=== PATIENT | male | born 1940 | race Caucasian/White ===

== ENCOUNTER 2018-07-10 11:15 | Inpatient (IN) | payer MEDICARE ==
[~2018-07-10] VITALS: Ht 162.6 cm; Wt 45.4 kg
[~2018-07-10 11:15] MED LIST: ADVIL PM CAPLE1 EACH PO; ALENDRONATE SOD70 MG PO; ASPIRIN81 MG PO; DAILY VITAMIN1 EAC3 PO; GABAPENTIN300 MG PO; GABAPENTIN600 MG PO; KEFLEX500 MG PO; LEVAQUIN500 MG PO; LIPITOR20 MG PO; LISINOPRIL10 MG PO; MOBIC15 MG PO; MULTI-VITAMIN1 EAC1 PO; TEMAZEPAM15 MG PO; TYLENOL325 MG PO; VITAMIN D1000 UNI1 PO; VITAMIN D3 1,01 EACH PO
--- OUTSIDE RECORDS SUMMARY | 2018-07-10 11:20 | XMS REPORT | Clinical Summary ---
Author Author [facility] Organization [facility] Address Unknown Phone Unavailable Care Team Providers Care Caramel Candy Maker Name Role Phone oMntez Elizabeth MD PCP Allergies No Known Allergies Medications End Date Status Medication Sig Dispensed Refills Start Date Active lisinopril Take 20 mg by 0 (PRINIVIL,ZESTRIL) 20 mg mouth daily. 7 tablet Active meloxicam (MOBIC) 15 mg Take 15 mg by 0 tablet mouth daily. 7 Active alendronate (FOSAMAX) 70 Take 70 mg by 0 03/11/201 MG tablet mouth every 7 7 days. Mondays Active atorvastatin (LIPITOR) 10 Take 10 mg by 0 12/29/201 MG tablet mouth 6 nightly. Active aspirin (ECOTRIN) 81 MG Take 81 mg by 0 enteric coated tablet mouth daily. Active traZODone (DESYREL) 150 Take 150 mg 0 02/24/201 MG tablet by mouth 7 nightly. Active lactulose 10 gram/15 mL Take 10 g by 0 (15 mL) solution mouth daily as needed (constipation ). Active traMADol (ULTRAM) 50 mg Take 50 mg by 0 tablet mouth every 6 (six) hours as needed for moderate pain. Active metoclopramide (REGLAN) Take 10 mg by 0 10 MG tablet mouth 4 (four) times a day before meals and nightly. Active sucralfate (CARAFATE) 100 Take 1 g by 0 mg/mL suspension mouth 2 (two) times a day before meals. Active cholecalciferol, vitamin Take 1,000 0 D3, (VITAMIN D3) 1,000 Units by unit tablet mouth daily. Active Problems Problem Noted Date Aspiration pneumonia 04/17/2017 Sialorrhea 04/17/2017 CLL (chronic lymphocytic leukemia) 04/17/2017 Dysphagia 04/17/2017 Pulmonary asbestosis 04/17/2017 Dysphagia 04/08/2017 Pharyngeal dysphagia 04/06/2017 Dysarthria 04/06/2017 Motor neuron disease Muscle weakness Polyneuropathy, idiopathic progressive Primary lateral sclerosis Cranial nerve lesion Cervical spondylosis with myelopathy Encounters Care Team Description Date Type Specialty Heidi Boyce MA 07/22/2017 Telephone Otolaryngology after 07/09/2017 Family History Medical History Relation Name Comments Parkinsonism Brother Heart disease Father Stroke Mother Dementia Sister Relation Name Status Comments Brother Father Mother Sister Social History Date Tobacco Use Types Packs/Day Years Used Former Smoker Alcohol Use Drinks/Week oz/Week Comments No Sex Assigned at Date Recorded Not on file Industry Job Start Date Occupation Not on file Not on file Not on file Travel End Travel History Travel Start No recent travel history available. Last Filed Vital Signs Not on file Plan of Treatment Health Maintenance Due Date Last Done Comments SHINGRIX VACCINE (1 of 2) 01/11/1990 ZOSTER VACCINE 2000 PNEUMOCOCCAL 01/11/2005 POLYSACCHARIDE VACCINE AGE 65 AND OVER PNEUMOCOCCAL-13 01/11/2005 INFLUENZA VACCINE 03/23/2018 Results Not on fileafter 07/09/2017 Insurance Payer Benefit Subscriber ID Type Phone Address Plan / Group [employer] MEDICARE [employer] xxxxxxxxx HMO [employer] Advance Directives Patient has advance care planning documents on file. For more information, macario rust contact: Aaron Beavers [address] [place] [address]
--- OUTSIDE RECORDS SUMMARY | 2018-07-10 11:20 | XMS REPORT ---
Author Author [facility] Address Unknown Phone Unavailable Care Team Providers Care Medical Support Assistant Name Role Phone Araseli LOGAN Unavailable Unavailable Problems This patient has no known problems. Allergies, Adverse Reactions, Alerts This patient has no known allergies or adverse reactions. Medications This patient has no known medications. Results Test Description Test Time Test Comments Text Results Atomic Results Result Comments CHEST SINGLE (PORTABLE) [place] [address] Patient Name: RIVER MONZON MR #: [id number] : 1940 Age/Sex: 77/M Req #: [id number] Adm Physician: Ordered by: LUIS MANUEL LOGAN MD Report #: [id number] Location: ER Room/Bed: Procedure: [id number] DX/CHEST SINGLE (PORTABLE) Exam Date: 07/27/17 Exam Time: 2350 REPORT STATUS: Signed EXAM: CHEST SINGLE (PORTABLE), AP 1 view DATE: 07/27/2017 11:01 PM Time stamp on exam: 2343 hours INDICATION: Spitting up COMPARISON: AP view of the chest January 03, 2017 FINDINGS: LINES/TUBES: None LUNGS: No consolidations or edema. PLEURA: No effusions or pneumothorax. Bilateral calcified pleural plaques. HEART AND MEDIASTINUM: Normal size and contour. BONES AND SOFT TISSUES: No acute findings. Surgical hardware lower cervical spine. IMPRESSION: No acute thoracic abnormality. Signed by: Dr. Lefty Rahman M.D. on 07/28/2017 12:27 AM Dictated By: LEFTY RAHMAN MD Transcribed By: JAMISON on 07/28/1726 COPY TO: LUIS MANUEL LOGAN MD
[2018-07-10] MEDS ORDERED: ASPIRIN 81 MG CHEW TAB PO ONE (12:15)
[2018-07-10 13:05] LABS: BASOPHILS # (AUTO) 0.1 (0.0-0.1); BASOPHILS % 0.2 % (0.0-1.0); HEMATOCRIT 34.2 % (38.2-49.6); HEMOGLOBIN 10.8 g/dL (14.0-18.0); LYMPHOCYTES # (AUTO) 7.3 (1.0-3.2); LYMPHOCYTES % 27.6 % (18.0-39.1); MEAN CORPUSCULAR HEMOGLOBIN 28.7 pg (28-32); MEAN CORPUSCULAR HGB CONC 31.6 g/dL (31-35); MONOCYTES % 7.4 % (4.4-11.3); NEUTROPHILS # (AUTO) 16.9 (2.1-6.9); NEUTROPHILS % 64.2 % (38.7-80.0); PLATELET COUNT 334 x10e3/uL (140-360); RED BLOOD COUNT 3.76 x10e6/uL (4.3-5.7); RED CELL DISTRIBUTION WIDTH 14.7 % (11.7-14.4)
[2018-07-10 13:15] LABS: INR 0.98; PARTIAL THROMBOPLASTIN TIME 19.8 seconds (23.8-35.5); PROTHROMBIN TIME 13.9 seconds (11.9-14.5)
--- NOTE | 2018-07-10 13:19 | NUR ---
18#g to the right ej placed and ivf started. radiology in room. placed on the monitor and siderails up x2. pt w/hx of wade.
--- NOTE | 2018-07-10 13:22 | NUR ---
pt more awake/alert and talking with the techTina mahoney.
[2018-07-10 13:26] LABS: ALANINE AMINOTRANSFERASE 21 IU/L (0-55); ALBUMIN 3.3 g/dL (3.5-5.0); ALBUMIN/GLOBULIN RATIO 0.8 (0.8-2.0); ALKALINE PHOSPHATASE 115 IU/L (40-150); AMYLASE 131 U/L (25-125); ANION GAP 19.1 mmol/L (8-16); BLOOD UREA NITROGEN 30 mg/dL (7-26); BUN/CREATININE RATIO 27 (6-25); CALCIUM 8.3 mg/dL (8.4-10.2); CARBON DIOXIDE 22 mmol/L (22-29); CHLORIDE 102 mmol/L (98-107); CREATINE KINASE 246 IU/L (30-200); CREATININE, SERUM 1.13 mg/dL (0.72-1.25); EST GLOMERULAR FILTRATION RATE > 60 ML/MIN (60-); GLUCOSE 151 mg/dL (74-118); LIPASE 28 U/L (8-78); MAGNESIUM 2.3 MG/DL (1.3-2.1); SODIUM 138 mmol/L (136-145)
--- NOTE | 2018-07-10 13:26 | NUR ---
family in room and has been updated on poc.
[2018-07-10 13:27] LABS: POTASSIUM 5.1 mmol/L (3.5-5.1)
--- NOTE | 2018-07-10 13:27 | Diagnostic Imaging Report ---
EXAMINATION: CHEST SINGLE (PORTABLE) COMPARISON: Chest x-ray 07/27/2017 INDICATION: Fall, pain DISCUSSION: Frontal view of the chest obtained at 1254 hours. HEART AND MEDIASTINUM: The cardiomediastinal silhouette is normal in size and morphology LINES: None. There may be a vascular stent in the left upper quadrant. LUNGS: Diffuse hyperinflation is stable. No pneumonia or pulmonary edema. PLEURA: Calcified pleural plaques are stable. No pleural effusions or pneumothorax BONES AND SOFT TISSUES: Fusion hardware in the lower cervical spine is stable. There are anchors and the right humeral head. No acute fracture or dislocation. The soft tissues are normal. IMPRESSION: No acute traumatic pathology by x-ray. 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 Signed by: Dr. Kanu Pendleton MD on 07/10/2018 1:24 PM
[2018-07-10] MEDS ORDERED: VANCOMYCIN 1GM/NS 250 ML 250 ML IV ONE (13:30)
--- NOTE | 2018-07-10 13:30 | Diagnostic Imaging Report ---
Pelvis CPT code: 38282 Indication: Fall, pain Technique: AP view of the pelvis obtained. Comparison: CT abdomen/pelvis 12/26/2016 Findings: There are fractures of the left superior and inferior pubic rami. No diastases of the sacroiliac joints. There is superior migration of the left pubic symphysis by 7 mm. No diastases of the pubic symphysis. The femurs are intact and normal in position. A bone island in the intertrochanteric region of the right femur is stable. Vascular clips in the right inguinal region are stable. Bilateral pedicle screws and vertical stabilizing bars in the lower lumbar spine are stable and appear intact. IMPRESSION: Fractures of the left superior and inferior pubic rami with superior migration of the left pubic symphysis by 7 mm. No femur fractures. Signed by: Dr. Kanu Pendleton MD on 07/10/2018 1:27 PM
[2018-07-10 13:31] LABS: B-TYPE NATRIURETIC PEPTIDE2 37.1 pg/mL (0-100)
[2018-07-10] MEDS ORDERED: SODIUM CHLORIDE 0.9% 1000ML 1,000 ML IV STA (14:07)
[2018-07-10] MEDS: METRONIDAZOLE 500MG/NS 100ML 100 ML IV SCH ×2 (14:30→23:35)
[2018-07-10] MEDS: CEFEPIME HCL 2 GM VIAL IV SCH (14:30)
--- NOTE | 2018-07-10 14:38 | Diagnostic Imaging Report ---
History:Fall Comparison studies:CT head 11/11/2015 Technique: Axial images were obtained from the skull base to the vertex. Coronal and sagittal images reconstructed from the axial data. Intravenous contrast: None Dose modulation, iterative reconstruction, and/or weight based adjustment of the mA/kV was utilized to reduce the radiation dose to as low as reasonably achievable. Findings: Scalp/skull: No abnormalities. Extra-axial spaces: No masses. No fluid collections. Brain sulci: Mildly prominent. Ventricles: Mild compensatory dilatation. No hydrocephalus. Parenchyma: Scattered hypodensities in the supratentorial white matter are small vessel ischemic changes. No masses, hemorrhage, acute or chronic cortical vascular insults. Sellar/suprasellar region: No abnormalities. Craniocervical junction: Patent foramen magnum. No Chiari one malformation. Incidental findings: Atherosclerotic calcifications in the carotid siphons . Partially visualized posterior upper cervical spine fusion. Impression: No acute abnormalities. Chronic findings: 1. Mild generalized volume loss. 2. Moderate supratentorial white matter small vessel ischemic changes. Signed by: DR Jax Landaverde M.D. on 07/10/2018 2:35 PM
--- NOTE | 2018-07-10 14:44 | Diagnostic Imaging Report ---
History: Fall Comparison studies: None Technique: Axial images were obtained through the cervical region. Coronal and sagittal images reconstructed from the axial data. Intravenous contrast: None Dose modulation, iterative reconstruction, and/or weight based adjustment of the mA/kV was utilized to reduce the radiation dose to as low as reasonably achievable. Findings: Atlantoaxial articulation: Intact Alignment: Reversal of the cervical spine lordosis Cervicomedullary junction: No abnormalities. Patent foramen magnum. Soft tissues: No gross abnormalities. Vertebrae: No fractures, neoplasm or infection. Anterior cervical fusion with plate and screws at C3 and T1. Corpectomy changes with bone graft from 4 through T1. Posterior fusion from C2 through T2. Degenerative changes: Grossly patent canal and foramina. IMPRESSION: 1. No acute cervical abnormalities. 2. Surgical changes of the cervical spine as described above. Signed by: DR aJx Landaverde M.D. on 07/10/2018 2:40 PM
--- NOTE | 2018-07-10 14:48 | Diagnostic Imaging Report ---
CT chest, abdomen and pelvis with intravenous contrast Indication: Trauma, fall, left hip pain Technique: Thin collimation axial images obtained from the thoracic inlet to the level of the pubic symphysis following the uneventful administration of 100 cc of low osmolar, nonionic intravenous contrast. RADIATION DOSE: Total DLP: 543.2 mGy*cm Estimated effective dose: (DLP x 0.015 x size factor) mSv CTDIvol has been reviewed. It is below the limits set by the Radiation Protocol Committee (RPC). Comparison: Pelvis x-ray performed at [address] abdomen/pelvis 12/26/2016 CHEST FINDINGS: Lymph nodes: Prominent left axillary lymph node measures 11 mm. No enlarged right axillary lymph nodes. Anterior paratracheal lymph node measures 8 mm. Precarinal lymph node measures 7 x 13 mm. No enlarged subcarinal lymph nodes. No enlarged hilar lymph nodes. Thyroid: There is beam Britt artifact from fusion hardware in the lower cervical spine. Visualized portions are unremarkable.. Mediastinum: The heart is enlarged. No pericardial effusion or mediastinal air. There is a small hiatal hernia. The ascending aorta measures 3.5 cm in diameter. The main pulmonary artery measures 2.5 cm in diameter. There are heavy calcifications of the coronary arteries. Airways: Small amount of mucous in the proximal trachea. Lungs: Right Lung: Diffusely hyperinflated. Rounded atelectasis of the anterolateral upper lobe associated with pleural plaques. There is subpleural microatelectasis adjacent to pleural plaques in the posterior mid lung field. There is scarring in the base of the lung. No contusions. Left Lung: Diffusely hyperinflated. There is subpleural microatelectasis adjacent to several pleural plaques. No contusions. Pleura:Calcified pleural plaques. No pleural effusions or pneumothorax. ABDOMEN FINDINGS: Liver: No contusion or laceration. Subcentimeter low attenuating lesion in the right lobe is too small to characterize. Gallbladder: Present and contains a curvilinear calcification of the wall. No gallbladder wall thickening or pericholecystic fluid. No biliary ductal dilatation. Pancreas: Normal attenuation without mass or ductal dilatation. Spleen: Normal in size without mass. Adrenal Glands: No evidence for mass. Kidneys: Right: Normal enhancement. No contusion or laceration. Tiny cortical low attenuating lesions are too small to characterize but are statistically cysts. No calculi. No hydronephrosis. Left: Normal enhancement. Wedge-shaped areas of hypoattenuation upper and lower poles are suggestive of scarring. No contusion or laceration. A well-defined cyst in the lower pole measures 10 mm. There are parenchymal calcifications in the upper pole measuring up to 10 mm. No hydronephrosis. Lymph Nodes: No enlarged abdominal or retroperitoneal lymph nodes. Aorta: Mildly ectatic with diffuse calcifications. PELVIS FINDINGS: Bowel: Stomach: Percutaneous gastrostomy is in appropriate position.. Small Bowel: Normal in caliber with normal wall thickness. Large Bowel: Large stool ball in the colon with large amount of stool throughout the large bowel. No mural thickening or pericolonic inflammation. Appendix: Not visualized and may be absent or collapsed. Bladder: Intact. Prostate gland is enlarged. Seminal vesicles are normal in morphology. Peritoneum/retroperitoneum: No free fluid or fluid collection.. Bones: Displaced of the left pubic superior and inferior pubic rami. No diastases of the sacroiliac joints or pubic symphysis. The superior migration of the left pubic symphysis on x-ray corresponds to the pubic ramus fracture. The hips are intact and normally positioned. There is fusion hardware in the lower lumbar spine at L4 and L5. No associated fracture or lucency to suggest loosening. There is 8 mm of anterolisthesis of L4 on L5. No compression fractures. Moderate degenerative changes from L1 to L3. Mild height loss of the T8 vertebral body without wedging. The spinal canal is intact. Fusion hardware in the lower cervical spine/upper thoracic spine appears intact without associated fracture. No evidence of rib or sternal fracture. The shoulders are intact and normally positioned. There are surgical anchors in the right humeral head. IMPRESSION: 1. No evidence of solid or hollow organ injury. 2. Fractures of the left superior and inferior pubic rami without malalignment of the bony pelvis. 3. Asbestos related pleural disease. Round atelectasis in the right upper lobe. 4. Medical devices as described above. 5. Atherosclerosis and aortic ectasia. 6. Cholelithiasis. 7. Parenchymal scarring of the left kidney. Bilateral renal cortical lesions suggestive of cysts. 8. Nonspecific mildly prominent left axillary and mediastinal lymph nodes. Recommend. Surveillance with CT to confirm stability. 9. Small hiatal hernia. Large stool burden with fecal impaction. No bowel obstruction. Signed by: Dr. Kanu Pendleton MD on 07/10/2018 2:44 PM
[2018-07-10] MEDS ORDERED: IOPAMIDOL 370 MG/ML 200 ML INFUS..BTL INJ ONE (15:06)
[2018-07-10 15:11] LABS: BILIRUBIN,URINE NEGATIVE (NEGATIVE); KETONES,URINE NEGATIVE (NEGATIVE); LEUKOCYTE ESTERASE ,URINE NEGATIVE (NEGATIVE); NITRITE,URINE NEGATIVE (NEGATIVE); PROTEIN,URINE DIPSTICK TRACE (NEGATIVE); URINE UROBILINOGEN 0.2 mg/dL (0.2 - 1)
[2018-07-10 15:20] LABS: BACTERIA,URINE RARE /HPF; CLARITY,URINE CLEAR (CLEAR); COLOR,URINE YELLOW (YELLOW); EPITHELIAL CELLS,URINE RARE /LPF; RBC,URINE 0-5 /HPF (0-5); WBC,URINE (MAN) 0-5 /HPF (0-5)
[2018-07-10] MEDS: MORPHINE SULFATE 2 MG/ML SYR IV NR ×2 (15:39→16:10)
[2018-07-10] MEDS ORDERED: PANTOPRAZOLE 40 MG 10ML VIAL IV STA (16:40)
[2018-07-10] MEDS: SODIUM CHLORIDE 0.9% 1000ML 1,000 ML IV SCH (16:40)
[2018-07-10] MEDS ORDERED: ACETAMINOPHEN 325 MG TAB PO PRN (16:45)
[2018-07-10] MEDS ORDERED: ALENDRONATE SODIUM 70 MG TAB PO SCH (16:45)
[2018-07-10] MEDS ORDERED: ONDANSETRON HCL INJ 2 MG/ML VIAL IV PRN (16:45)
[2018-07-10 16:58] LABS: BAND NEUTROPHILS % (MANUAL) 2 %; LYMPHOCYTES % (MANUAL) 20 % (19-48); MONOCYTES % (MANUAL) 4 % (3.4-9.0); NEUTROPHILS % (MANUAL) 74 % (40-74); PLATELET ESTIMATE ADEQUATE; PLATELET MORPHOLOGY COMMENT FEW EDTA CLUMPING; RBC MORPHOLOGY COMMENT NORMAL
--- OUTSIDE RECORDS SUMMARY | 2018-07-10 17:08 | XMS REPORT | Clinical Summary ---
Author Author [facility] Organization [facility] Address Unknown Phone Unavailable Care Team Providers Care Clinical Faculty Name Role Phone Montez Elizabeth MD PCP Allergies No Known Allergies [...] more information, macario rust contact: Aaron Beavers [address] [place] [address]
--- NOTE | 2018-07-10 18:16 | NUR ---
RECEIVED PATIENT FROM ER AWAKE AND ALERT, NO S/S OF DISTRESS, COUGH WITH PRODUCTIVE SPUTUM NOTED, PATIENT CONNECTED TO CARDIAC MONITORING, AND SUCTION SET UP AT THIS TIME, R EJ PIV INTACT AND NS @ 100 MLS/HR INFUSING, PEG TUBE NOTED AND CLAMPED, FAMILY AT BEDSIDE, UPDATED ON POC AND VERBALIZED UNDERSTANDING, BED LOW AND LOCKED AND CALL RTEJO IN REACH WILL CONTINUE TO MONITOR
[2018-07-10 18:30] VITALS: BP 121/66
[2018-07-10] MEDS: PANTOPRAZOLE 40 MG 10ML VIAL IV SCH (18:33)
[2018-07-10] MEDS: MORPHINE SULFATE 2 MG/ML SYR IV PRN (18:46)
[2018-07-10 19:20] VITALS: BP 102/51
[2018-07-10 19:45] VITALS: BP 102/51
--- NOTE | 2018-07-10 20:06 | History and Physical ---
HISTORY OF PRESENT ILLNESS: He is essentially a 78-year-old male with past medical history positive for ALS, history of arthritis, and history of chronic lymphocytic leukemia. He was found to be on the floor at home. He was found to have pelvis fractures. He was very hypotensive when he came here and responded to IV fluids. Lactic acids were elevated more likely secondary to sepsis. Patient is admitted to the hospital. REVIEW OF SYSTEMS CARDIOVASCULAR: No chest pain or palpitation. RESPIRATORY: No shortness of breath. No cough. GASTROINTESTINAL: No nausea, no vomiting, no diarrhea. GENITOURINARY: No frequency, no dysuria. ALLERGIES: HE IS NOT ALLERGIC TO ANY MEDICATION. SOCIAL HISTORY: He does not smoke, does not drink. PAST MEDICAL HISTORY: Positive for CLL and ALS. PHYSICAL EXAMINATION VITAL SIGNS: Temperature 99.9, heart rate 85 per minute, respiratory rate 16 per minute, blood pressure 115/59, oxygen saturation 93%. LABORATORY DATA: On the CBC, white blood count 26.32, hemoglobin 10.8, hematocrit 34.2, platelet count 340,000. On the BMP, sodium 138, potassium 5.1, chloride 102, CO2 of 22, anion gap 19.1, BUN 30, creatinine 1.13, and glucose 151. Lactic acid 21.2, calcium 9.3, magnesium 2.3, total bilirubin 0.5, AST 32, ALT 21, alkaline phosphatase 115. Creatine kinase 246, CK-MB 1.80, troponin 0.001, B-natriuretic peptide 57.1. Total protein is 7.2, albumin 3.3, globulin 3.9, amylase 131, lipase 28. Urinalysis did not show any significant abnormality. PT 13.9, INR 0.98, PTT 19.8. Blood culture and urine culture have been sent. Chest x-ray is negative. CT of the cervical spine completely normal, showed no evidence of any fractures. CT of the head showed no evidence of any CVA. Chest x-ray showed . CT of the abdomen showed essentially fecal impaction and some tiny cortical low-attenuating lesions, too small to characterize, no hydronephrosis. Fractures of left superior and inferior pubic rami without malalignment of the bony pelvis, asbestosis related pulmonary disease, round atelectasis right upper lobe atherosclerotic aortic ectasia, cholelithiasis, parenchymal scarring on the left kidney, bilateral renal cortical lesions suggestive of cysts, nonspecific mildly prominent left axillary and mediastinal lymph nodes, recommend surveillance with CT to confirm stability. On report of CT of the abdomen, also small hiatal hernia with fecal impaction and bowel loop dilatation. FINAL IMPRESSION 1. Septic shock, which is resolving. 2. Ixqfa-wf-iivgiga renal failure. 3. Pelvis fracture. 4. Amyotrophic lateral sclerosis and chronic lymphocytic leukemia. We are going to consult Dr. Ordaz for hematology because of leukemia. We were going to consult Dr. Pham for orthopedic surgery because of pelvis fracture, and Dr. Hackett for infectious disease. The rest of medications will be continued with continuation of the Flagyl 500 mg IV q.6 hours, normal saline 125 mL an hour, vancomycin received 1 dose, Tylenol 650 mg q.4 hours as needed for pain or fever, aspirin 81 mg daily, atorvastatin 10 mg daily, cefepime 2 grams IV twice a day, cholecalciferol 1000 units 3 times a day. Continue morphine 2 mg IV q.4 hours as needed, Zofran 4 mg IV q.4 hours as needed, and Protonix 40 mg IV twice a day. Job#: [id number] PAT
[2018-07-10 21:00] VITALS: BP 102/51
[2018-07-10] MEDS ORDERED: ATORVASTATIN 20 MG TAB PO SCH (21:00)
[2018-07-10] MEDS: CHOLECALCIFEROL 1,000 UNIT TAB PO SCH (21:00)
[2018-07-10 22:04] LABS: CREATINE KINASE MB 5.3 ng/mL (0-5.0)
[2018-07-11] VITALS (10 sets, daily range): BP systolic 96–119; BP diastolic 48–65
[2018-07-11] MEDS: MORPHINE SULFATE 2 MG/ML SYR IV PRN (00:47)
[2018-07-11] MEDS ORDERED: MORPHINE SULFATE 2 MG/ML SYR IV ONE (02:15)
[2018-07-11] MEDS: CEFEPIME HCL 2 GM VIAL IV SCH ×2 (02:20→15:37)
[2018-07-11] MEDS: CYCLOBENZAPRINE HCL 10 MG TAB PO PRN ×3 (04:10→20:15)
[2018-07-11] MEDS: SODIUM CHLORIDE 0.9% 1000ML 1,000 ML IV SCH ×3 (04:10→22:40)
[2018-07-11 04:36] LABS: BASOPHILS # (AUTO) 0.1 (0.0-0.1); BASOPHILS % 0.3 % (0.0-1.0); EOSINOPHILS # (AUTO) 0.1 (0.0-0.4); EOSINOPHILS % 0.2 % (0.0-6.0); HEMATOCRIT 28.5 % (38.2-49.6); LYMPHOCYTES # (AUTO) 13.1 (1.0-3.2); LYMPHOCYTES % 53.6 % (18.0-39.1); MEAN CORPUSCULAR HEMOGLOBIN 28.6 pg (28-32); MEAN CORPUSCULAR HGB CONC 31.6 g/dL (31-35); MEAN CORPUSCULAR VOLUME 90.5 fL (81-99); MONOCYTES # (AUTO) 1.6 (0.2-0.8); MONOCYTES % 6.6 % (4.4-11.3); NEUTROPHILS # (AUTO) 9.5 (2.1-6.9); NEUTROPHILS % 38.9 % (38.7-80.0); PLATELET COUNT 300 x10e3/uL (140-360); RED BLOOD COUNT 3.15 x10e6/uL (4.3-5.7); RED CELL DISTRIBUTION WIDTH 14.7 % (11.7-14.4)
[2018-07-11 04:58] LABS: ALANINE AMINOTRANSFERASE 19 IU/L (0-55); ALBUMIN 2.6 g/dL (3.5-5.0); ALBUMIN/GLOBULIN RATIO 0.7 (0.8-2.0); ALKALINE PHOSPHATASE 90 IU/L (40-150); BLOOD UREA NITROGEN 28 mg/dL (7-26); BUN/CREATININE RATIO 33 (6-25); CALCIUM 8.5 mg/dL (8.4-10.2); CARBON DIOXIDE 19 mmol/L (22-29); CHLORIDE 109 mmol/L (98-107); CREATININE, SERUM 0.86 mg/dL (0.72-1.25); EST GLOMERULAR FILTRATION RATE > 60 ML/MIN (60-); GLUCOSE 96 mg/dL (74-118); SODIUM 140 mmol/L (136-145)
[2018-07-11 06:27] LABS: CREATINE KINASE MB 4.5 ng/mL (0-5.0)
[2018-07-11] MEDS: METRONIDAZOLE 500MG/NS 100ML 100 ML IV SCH ×4 (06:30→23:37)
[2018-07-11 07:05] LABS: LYMPHOCYTES % (MANUAL) 63 % (19-48); MONOCYTES % (MANUAL) 4 % (3.4-9.0); NEUTROPHILS % (MANUAL) 33 % (40-74); PLATELET ESTIMATE ADEQUATE; PLATELET MORPHOLOGY COMMENT FEW LARGE; RBC MORPHOLOGY COMMENT NORMAL
[2018-07-11 07:06] LABS: ANISOCYTOSIS SLIGHT; HYPOCHROMASIA SLIGHT
--- NOTE | 2018-07-11 07:20 | NUR ---
Message left for answering service for Dr. Chris re: order to be attending physician from Dr. Nguyen.
[2018-07-11] MEDS: CHOLECALCIFEROL 1,000 UNIT TAB PO SCH ×3 (09:00→20:15)
[2018-07-11] MEDS: ASPIRIN 81 MG CHEW TAB PO SCH (11:00)
[2018-07-11] MEDS: PANTOPRAZOLE 40 MG 10ML VIAL IV SCH ×2 (11:00→17:55)
--- NOTE | 2018-07-11 11:03 | Progress Note ---
DATE: July 11, 2018 Mr. Gloria is a 78-year-old man with a history of ALS, history of arthritis, chronic lymphocytic leukemia. He was found at home on the floor. He has a pelvic fracture. He was hypotensive so he was sent to the emergency room. PHYSICAL EXAMINATION GENERAL: Today, the patient is awake and alert. He answers questions. VITALS: Temperature is 98.7, blood pressure is 96/48. HEART: Regular rate. LUNGS: Poor inspiratory effort. ABDOMEN: Distended and soft. BLOOD WORK: White count is 24.44, hemoglobin is 9, hematocrit is 28.5. CPK 811. Troponin negative. Lactic acid is elevated. Urine shows 0-5 white blood cells. Urine culture and blood cultures are pending. Cervical CT shows no acute findings. Brain CT shows no acute abnormalities. Pelvic x-ray shows fracture of a left superior and inferior pubic rami and superior migration of the left pubic symphysis. Chest x-ray no acute traumatic pathology. Chest CT shows no solid organ injury. Fracture of the left superior and inferior pubic rami. Asbestosis related pleural disease. Small hiatal hernia. Abdominal and pelvic CT showed no solid or hollow organ injury. ASSESSMENT AND PLAN 1. Septic shock. 2. Pelvic fracture. 3. Xtfrw-im-[id number] renal failure. 4. Dehydration. 5. History of chronic lymphocytic leukemia. 6. History of amyotrophic lateral sclerosis. PLAN: At the present time, is to admit the patient to the hospital. Surgical consult with Dr. Pham. Orthopedic consult with Dr. Pham. Infectious disease consult with Dr. Hackett. Continue IV antibiotics. Continue to monitor mental status. We need to follow culture results. The overall prognosis of the patient is still guarded. Job#: [id number] MA
[2018-07-11] MEDS: MORPHINE SULFATE INJ 4 MG/ML INJ IV PRN ×2 (12:19→20:15)
--- NOTE | 2018-07-11 12:43 | NUR ---
Nutrition Intervention Note RD Recommendation(s) for Physician: Rec to start bolus feedings of Jevity 1.2 via PEG with 7 TOTAL CANS/DAY q4hr (2 cans for 1st 3 feedings and 1 can for last feeding) - providing 1995kcal and 92.4g protein, 1337mL water Rec 50mL of free H2O flushes before and after each feeding, additional H2O per MD discretion Keep HOB elevated 30-45degrees during feeding and 60 minutes after feeding Monitor labs and TF tolerance daily; replace low lytes Obtain daily weight Plan of Care: RD following, monitoring for tolerance and adequacy, TF rec Nutrition reason for involvement: RN Consult no reason stated RD Assessment 07/11: Chart reviewed. 78yo M who is admitted s/p fall with pelvic fx. Family presents on bedside provided all hx. Per family, pt has had PEG tube with him for 1.5 years. Pt has been receiving bolus feedings of Jevity 1.2 via PEG with 7 TOTAL cans/day q4hr (2 cans for 1st 3 feedings and 1 can for last feeding). Pt has been tolerating TF at home very well with some reported weight gain. Last BW check at the MDs office was 110lbs a month ago. Family reports of no weight check upon admission due to weakness. Bedside scale showed ~110lbs [address] checked. 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 Family also reports of lactulose usage when needed. RD rec to resume home feeding as medically feasible. Will continue to monitor and follow. Principal Problems/Diagnoses: septic shock, pelvic fx, acute on chronic renal failure, dehydration PMH: leukemia, ALS arthritis GI: No nutrition since admission on 07/10, LBM 07/09 Skin: intact Labs: (07/11) BUN 28 h, AST 36 H Meds: (07/11) Flexeril, NaCl Ht: 64in Wt: 110lb per family BMI: 18.9kg/m2 IBW: 120lbs Malnutrition Evaluation (07/11/18) The patient does not meet criteria for a specified degree of malnutrition at this time. Will re-evaluate at follow-up as appropriate. Nutrition Prescription (Diet Order): NPO Estimated Nutritional Needs: Calories: 1635-1908kcal (30-35kcal/kg/d) Weight used : Actual BW Protein: 75-100g (1.5-2g/kg/d) Weight used: Actual BW Diet Adequacy:Not meeting calorie needs, Not meeting protein needs Diet Education Needs Assessment:Diet education not indicated. Nutrition Care Level: moderate Nutrition Diagnosis: Inadequate oral intake as related chronic medical illness as evidenced by requiring EN as main source of nutrients. Goal: Patient will meet 75-100% of estimated needs by follow up Progress: Not Progressing Interventions: Composition, Rate, Route, IVF Monitoring/Evaluation: Total energy intake, Total protein intake, Formula/Solution, IVF, Prescription medication, Weight change Signed: Nicole Enriquez MS, RD, LD
[2018-07-11 13:00] LABS: CREATINE KINASE MB 6.3 ng/mL (0-5.0)
--- NOTE | 2018-07-11 15:57 | NUR ---
CM SPOKE TO PATIENT AND PATIENT DAUGHTER LAMONTE AT BEDSIDE. PATIENT LIVES WITH SON THOM AWAD IN [place], [place]. PATIENT HAS A REGULAR BED, SUCTION DEVICE, AND WALKER AT HOME. FAMILY FRIEND, REGIS ESCALONA-TOMMY LICVES IN THE HOME AND ASSISTS WITH FEEDING AND CARING FOR PATIENT. PATIENT AND PATIENT FAMILY STTAES THEY HAVE NO NEEDS AT THIS TIME. CM GAVE FAMILY CM INFORMATION FOR ANY ASSISTANCE. LAMONTE- DAUGHTER: [phone] THOM- SON: [phone] GOAL IS FOR PATIENT TO RETURN HOME WITH NO NEEDS.
--- NOTE | 2018-07-11 17:14 | Diagnostic Imaging Report ---
EXAM: KNEE LEFT THREE VIEWS DATE: 07/11/2018 2:43 PM INDICATION: ^PELVIC FRACTURE ^[id number] ^1613 pain COMPARISON: None FINDINGS: Positioning limits evaluation. No definite fracture at the knee. No significant joint effusion. IMPRESSION: No acute findings. Signed by: Dr. Hemanth Soliz MD on 07/11/2018 5:11 PM
--- NOTE | 2018-07-11 17:15 | Diagnostic Imaging Report ---
EXAM: FEMUR 2 VIEWS MINIMUM LEFT DATE: 07/11/2018 2:43 PM INDICATION: ^PELVIC FRACTURE pain COMPARISON: None FINDINGS: Left inferior pubic ramus fracture partially visualized. Mild degenerative changes left hip. No fracture in the femur identified. Distal femur not included. See knee radiographs. IMPRESSION: Left inferior pubic ramus fracture. Signed by: Dr. Hemanth Soliz MD on 07/11/2018 5:12 PM
--- NOTE | 2018-07-11 17:26 | Consultation ---
DATE OF CONSULTATION: REASON FOR CONSULTATION: Concern about sepsis and pneumonia. HISTORY OF PRESENT ILLNESS: This patient is a 78-year-old white male with history of ALS, arthritis, chronic lymphocytic leukemia. The patient apparently was found at the house on the floor, was brought to the emergency room where he was diagnosed with pelvic fracture. He is not a surgical candidate. Also the patient has been hypotensive. He has been getting IV fluid. The patient, who is currently lying in bed comfortably, does not really provide any complaints. His daughter at the bedside. When he first came, his white count was 26.3, hemoglobin of 10.8, hematocrit of 34, platelet 340. BMP had the sodium 138, the potassium 5.1, the chloride 102, BUN 30, creatinine 1.13. Lactic acid 21. Calcium 9.3. Amylase 131, lipase 28. The UA did not show any abnormality. Chest x-ray negative. CT of the cervical spine normal. CT of the head, no evidence of any CVA. CT of the abdomen showed fecal impaction, some tiny cortical low lesions. Patient was admitted with pelvic fracture and sepsis. Infectious Disease was consulted. Blood cultures negative for 24 hours. White count on admission was 26, today 24. Hemoglobin 9.1, hematocrit 28, platelets 300. PHYSICAL EXAMINATION: GENERAL: Patient is alert, does not seem acute distress. VITAL SIGNS: T max 100.3. HEENT: He does not appear icteric. NECK: Supple. CHEST: Clear bilaterally. HEART: S1, S2. No S3, no S4. No murmur. ABDOMEN: Soft. Bowel sounds present. No tenderness. EXTREMITIES: No edema. SKIN: No rash. IMPRESSION: 1. Hypotensive, hypertension and fever. Concerned about sepsis. Will get blood cultures, which were ordered. Will put him on Rocephin. Discontinue Flagyl. 2. Amyotrophic lateral sclerosis. 3. Debility. I am not so sure if the patient can go back home. I think he would need LTAC for extensive PT/OT plus antibiotic plus supportive care since patient was septic on present. Will follow. Job#: [id number] EV
--- NOTE | 2018-07-11 19:05 | Consultation ---
DATE OF CONSULTATION: July 11, 2018 CONSULTATION TO: Dr. Nguyen HISTORY: Mr. Gloria is a 78-year-old male referred to me for evaluation of chronic lymphocytic leukemia, history of chronic lymphocytic leukemia, history of amyotrophic lateral sclerosis. The patient fell at home, could not get up, had subsequent pain in the hip. Subsequently was found to have fracture of the pubic ramus on the left, history of being hypotensive in the emergency room. SOCIAL HISTORY: Noncontributory. FAMILY HISTORY: Noncontributory. ALLERGIES: REPORTED NONE. MEDICATIONS: At this time: 1. Metronidazole. 2. Tylenol. 3. Normal saline. 4. Fosamax. 5. Aspirin. 6. Lipitor. 7. Cefepime. 8. Flexeril. 9. Morphine. 10. Protonix. REVIEW OF SYSTEMS: HEENT: Normal. CARDIAC: Normal. RESPIRATORY: At the present time reported as possible bronchopneumonia. GI: Normal. : Normal. MUSCULOSKELETAL: Fracture of the pubic ramus. NEUROENDOCRINE: Reported essentially normal. HEMATOLOGICAL: Stage 4 chronic lymphocytic leukemia by Maximiliano Mullen's classification. PHYSICAL EXAMINATION: GENERAL: A moderately-built male. HEENT: No palpable adenopathy. HEART: Within normal limits. LUNGS: Clear. ABDOMEN: Obese. RECTAL: Deferred. CENTRAL NERVOUS SYSTEM: Could not be done. EXTREMITIES: Essentially normal. LABS AND INVESTIGATIONS: Of interest show a hemoglobin of 10.8, hematocrit of 34.2, MCV 91, MCHC 31.6, RDW 14.7. White count of 26,320 with predominantly lymphocytes 63%. Chemistry shows a sodium of 138, potassium 5.1, chloride of 72, CO2 22, BUN 30, creatinine 1.1, glucose 151. Lactic acid high at 21.2. Calcium 8.3. Bilirubin 0.5, SGOT 32, SGPT 21, alkaline phosphatase 115. Total protein 7.2, albumin 3.3, globulin 3.9. IMAGING: Consists of CAT scan of the abdomen and pelvis. The patient has asbestosis related pleural disease, round atelectasis at the right lobe, atherosclerosis of the aorta, gallstones, hiatus hernia. The patient has hardware at L4-L5. There is some compression of T8, however, no wedging. Osteophytes from L1 to L3. IMPRESSION: 1. Chronic lymphocytic leukemia, stage 4 by Mullen's classification. 2. Fracture, left inferior superior pubic ramus. 3. History of amyotrophic lateral sclerosis. 4. Hyperkalemia. 5. Lactic acidosis. 6. Hypoalbuminemia. 7. Hyperglobulinemia. 8. Hypocalcemia. 9. Sepsis. 10. Urinary tract infection. 11. Asbestosis. 12. L4-L5 fusion. 13. Gallstones. 14. Hiatus hernia. PLAN, COMMENTS, AND SUGGESTIONS: 1. Suggest to continue aggressive antibiotic therapy. 2. Chronic lymphocytic leukemia at this time does not need any treatment. However, stage 4 is always treated with systemic chemotherapy with Fludara, however, I would leave it up to his medical oncologist to take over once the patient is out of this hospital. Thank you. Job#: [id number] cc:MD JORDY CATALAN MD
[2018-07-11] MEDS: ATORVASTATIN 10 MG TAB PO SCH (20:15)
--- NOTE | 2018-07-11 21:23 | NUR ---
POSITIONED PATIENT ON REVERSE [place], GAVE ONE CARTOON OF JEVITY, AND 50 CC FREE WATER BEFORE AND AFTER IT. PATIENT TOLERATED WELL, NO DISTRESS NOTED, WILL CONTINUE TO MONITOR.
[2018-07-12] MEDS ORDERED: SODIUM CHLORIDE 0.9% 50ML 50 ML ONE (01:21)
[2018-07-12] MEDS: CEFEPIME HCL 2 GM VIAL IV SCH ×2 (01:22→14:02)
[2018-07-12] MEDS: MORPHINE SULFATE INJ 4 MG/ML INJ IV PRN ×3 (01:25→20:20)
--- NOTE | 2018-07-12 01:31 | NUR ---
cleaned patient in bed, gave morphine PRN prior cleaning to reduce pain. patient tolerated fair. will continue to monitor.
[2018-07-12] MEDS: CYCLOBENZAPRINE HCL 10 MG TAB PO PRN ×2 (03:19→20:21)
[2018-07-12 04:07] VITALS: BP 116/64
[2018-07-12] MEDS: METRONIDAZOLE 500MG/NS 100ML 100 ML IV SCH ×4 (05:07→23:37)
[2018-07-12 07:40] VITALS: BP 112/58
[2018-07-12] MEDS: SODIUM CHLORIDE 0.9% 1000ML 1,000 ML IV SCH ×2 (08:40→19:10)
[2018-07-12] MEDS ORDERED: ALENDRONATE SODIUM 70 MG TAB PO SCH ×2 (09:00)
[2018-07-12] MEDS: PANTOPRAZOLE 40 MG 10ML VIAL IV SCH ×2 (09:37→19:10)
[2018-07-12] MEDS: CHOLECALCIFEROL 1,000 UNIT TAB PO SCH ×3 (09:37→20:20)
[2018-07-12] MEDS: ASPIRIN 81 MG CHEW TAB PO SCH (09:37)
--- NOTE | 2018-07-12 16:12 | NUR ---
CM SPOKE TO PATIENT AT BEDSIDE. PATIENT ALERT AND ORIENTED X3. PATIENT INFORMED OF MENTAL RETARDATION NURSE ACUTE CARE EVALUATION ORDER BY PHYSICIAN. PATIENT STATES THEY ARE AWARE. PATIENT CHOSE [facility] DUE TO PROXIMITY TO WHERE PATIENT LIVES AND CONTINUITY OF CARE. CHOICE LETTER SIGNED AND PLACED IN CHART. COPY GIVEN TO PATIENT AT BEDSIDE. CLINICAL PICKED UP BY [facility]. PENDING AUTH AND BED ASSIGNMENT.MOT INITIATED AND PLACED IN PACKET ON CHART. PATIENT WITH EVALUATION TO: [facility] Address: [address], [place] [address]
[2018-07-12 19:00] VITALS: BP 115/65
--- NOTE | 2018-07-12 19:30 | NUR ---
received pt aaox3, breathing even and unlabored, children at bedside, pt c/o pain to pelvic area, informed pt this nurse will get something for him for pain. Informed pt on breathing techniques, pt verbalized understanding.
[2018-07-12] MEDS: ATORVASTATIN 10 MG TAB PO SCH (20:20)
[2018-07-12 21:34] VITALS: BP 115/65
[2018-07-13] VITALS (9 sets, daily range): BP systolic 105–142; BP diastolic 63–81
[2018-07-13] MEDS ORDERED: SODIUM CHLORIDE 0.9% 250ML 250 ML ONE (02:06)
[2018-07-13] MEDS: CEFEPIME HCL 2 GM VIAL IV SCH ×2 (02:07→12:33)
[2018-07-13] MEDS: MORPHINE SULFATE INJ 4 MG/ML INJ IV PRN ×4 (02:08→19:45)
[2018-07-13 05:02] LABS: BASOPHILS % 0.2 % (0.0-1.0); EOSINOPHILS # (AUTO) 0.5 (0.0-0.4); EOSINOPHILS % 2.5 % (0.0-6.0); HEMATOCRIT 28.9 % (38.2-49.6); HEMOGLOBIN 8.9 g/dL (14.0-18.0); LYMPHOCYTES # (AUTO) 9.5 (1.0-3.2); LYMPHOCYTES % 49.8 % (18.0-39.1); MEAN CORPUSCULAR HEMOGLOBIN 28.3 pg (28-32); MEAN CORPUSCULAR HGB CONC 30.8 g/dL (31-35); MONOCYTES # (AUTO) 1.3 (0.2-0.8); MONOCYTES % 6.7 % (4.4-11.3); NEUTROPHILS # (AUTO) 7.7 (2.1-6.9); NEUTROPHILS % 40.4 % (38.7-80.0); PLATELET COUNT 258 x10e3/uL (140-360); RED BLOOD COUNT 3.14 x10e6/uL (4.3-5.7); RED CELL DISTRIBUTION WIDTH 14.6 % (11.7-14.4)
[2018-07-13] MEDS: METRONIDAZOLE 500MG/NS 100ML 100 ML IV SCH ×3 (05:42→18:06)
[2018-07-13] MEDS: SODIUM CHLORIDE 0.9% 1000ML 1,000 ML IV SCH ×2 (06:48→13:25)
--- NOTE | 2018-07-13 07:34 | NUR ---
REPORTED OFF TO KENY RN, PT AWAKE, DENIES ANY DISCOMFORTS AT THIS TIME.
[2018-07-13 08:20] LABS: EOSINOPHILS % (MANUAL) 2 % (0-7); LYMPHOCYTES % (MANUAL) 54 % (19-48); MONOCYTES % (MANUAL) 7 % (3.4-9.0); NEUTROPHILS % (MANUAL) 35 % (40-74)
[2018-07-13 08:22] LABS: ANISOCYTOSIS SLIGHT; HYPOCHROMASIA SLIGHT; POIKILOCYTOSIS SLIGHT; RBC MORPHOLOGY COMMENT NORMAL
[2018-07-13 08:23] LABS: PLATELET ESTIMATE ADEQUATE
[2018-07-13 08:24] LABS: PLATELET MORPHOLOGY COMMENT NORMAL
[2018-07-13] MEDS: CHOLECALCIFEROL 1,000 UNIT TAB PO SCH ×2 (10:20→15:43)
[2018-07-13] MEDS: ASPIRIN 81 MG CHEW TAB PO SCH (10:20)
[2018-07-13] MEDS: PANTOPRAZOLE 40 MG 10ML VIAL IV SCH ×2 (12:25→17:47)
--- NOTE | 2018-07-13 12:34 | NUR ---
Dr. Albert Chris rounding. Pt okay to discharge once accepted to LTAC.
--- NOTE | 2018-07-13 13:45 | NUR ---
Nutrition Intervention Note RD Recommendation(s) for Physician: Continue bolus feedings of Jevity 1.2 via PEG with 7 TOTAL CANS/DAY q4hr (2 cans for 1st 3 feedings and 1 can for last feeding) - providing 1995kcal and 92.4g protein, 1337mL water Continue 50mL of free H2O flushes before and after each feeding, additional H2O per MD discretion Keep HOB elevated 30-45degrees during feeding and 60 minutes after feeding Monitor labs and TF tolerance daily; replace low lytes Obtain daily weight Plan of Care: RD following, monitoring for tolerance and adequacy, TF rec Nutrition reason for involvement: Follow up RD Assessment 07/13: Chart reviewed. No family presents on bedside. Per RN, pt has been tolerating bolus feeding without any GI complain. During my visit, there were some green mucous in a bowl. When I asked pt about the mucous, pt states this has been going on for a while at home as well. CT abd/ pel showed large stool burden with fecal impaction; RN is aware. Pt denies any abdominal pain, nausea or vomiting at this time. Will continue to monitor and follow. 07/11: Chart reviewed. 78yo M who is admitted s/p fall with pelvic fx. Family presents on bedside provided all hx. Per family, pt has had PEG tube with him for 1.5 years. Pt has been receiving bolus feedings of Jevity 1.2 via PEG with 7 TOTAL cans/day q4hr (2 cans for 1st 3 feedings and 1 can for last feeding). Pt has been tolerating TF at home very well with some reported weight gain. Last BW check at the MDs office was 110lbs a month ago. Family reports of no weight check upon admission due to weakness. Bedside scale showed ~110lbs [address] checked. Family denies any GI complain [employer]. Family also reports of lactulose usage when needed. RD rec to resume home feeding as medically feasible. Will continue to monitor and follow. Principal Problems/Diagnoses: septic shock, pelvic fx, acute on chronic renal failure, dehydration PMH: leukemia, ALS arthritis GI: No BM since admission Skin: intact Labs: (07/13) BUN 28 H (07/11) BUN 28 H Meds: (07/12) protonix, vitamin D3, NaCl Ht: 64in Wt: 110lb per family BMI: 18.9kg/m2 IBW: 120lbs Malnutrition Evaluation (07/11/18) The patient does not meet criteria for a specified degree of malnutrition at this time. Will re-evaluate at follow-up as appropriate. Nutrition Prescription (Diet Order): NPO Estimated Nutritional Needs: Calories: 1635-1908kcal (30-35kcal/kg/d) Weight used : Actual BW Protein: 75-100g (1.5-2g/kg/d) Weight used: Actual BW Diet Adequacy: meeting calorie needs, meeting protein needs Diet Education Needs Assessment: Diet education not indicated. Nutrition Care Level: moderate Nutrition Diagnosis: Inadequate oral intake as related chronic medical illness as evidenced by requiring EN as main source of nutrients. Goal: Patient will meet 75-100% of estimated needs by follow up Progress: Progressing Interventions: Composition, Rate, Route, IVF Monitoring/Evaluation: Total energy intake, Total protein intake, Formula/Solution, IVF, Prescription medication, Weight change Signed: Nicole Enriquez MS, RD, LD
--- NOTE | 2018-07-13 17:50 | NUR ---
DAUGHTER LAMONTE CALLED AND INFORMED OF ACCEPTANCE TO [facility]. LAMONTE WILL BE HERE SHORTLY TO DECIDE ON WHICH EMS TO TRANSFER PATIENT.
--- NOTE | 2018-07-13 18:08 | NUR ---
Attempted to call report to [facility] ICU room 7 at this time.
--- NOTE | 2018-07-13 18:12 | NUR ---
MOT completed by primary RN, family consent obtained for transfer; family consent for EMS transport.
--- NOTE | 2018-07-13 18:27 | NUR ---
Called [facility]; spoke with Humberto to give report for pt transfer to ICU room 7; [phone].
--- NOTE | 2018-07-13 20:15 | NUR ---
patient en route to [facility] bed 7 and as per report given to Humberto by Adalgisa, patient will be transferred with iv. patient was picked up by transport and sent to [facility], son and daughter were here and acknowledges process, patient belongings were all taken care of by family.
== END 2018-07-13 20:15 | DRG 871 ==
LOC: ER 11:15 → ERHOLD 17:04 → IMCU 18:22
DX: A41.9 Sepsis, unspecified organism (principal); R65.21 Severe sepsis with septic shock; G93.41 Metabolic encephalopathy; J69.0 Pneumonitis due to inhalation of food and vomit; S32.512A Fracture of superior rim of left pubis, initial encounter for closed fracture; G12.21 Amyotrophic lateral sclerosis; C95.90 Leukemia, unspecified not having achieved remission; N17.9 Acute kidney failure, unspecified; E87.2 Acidosis; N39.0 Urinary tract infection, site not specified; W19.XXXA Unspecified fall, initial encounter; Y93.9 Activity, unspecified; Y92.009 Unspecified place in unspecified non-institutional (private) residence as the place of occurrence of the external cause; E87.5 Hyperkalemia; E83.51 Hypocalcemia; J61 Pneumoconiosis due to asbestos and other mineral fibers; K44.9 Diaphragmatic hernia without obstruction or gangrene; M43.20 Fusion of spine, site unspecified; E86.0 Dehydration; E88.09 Other disorders of plasma-protein metabolism, not elsewhere classified; I70.0 Atherosclerosis of aorta; Z93.1 Gastrostomy status; K80.80 Other cholelithiasis without obstruction
CPT/HCPCS: 36415; 70450; 71045; 71260; 72125; 72170; 74177; 80053; 81001; 82150; 82550; 82553; 83605; 83690; 83735; 83880; 84484; 85025; 85610; 85730; 87040; 87086; 93005; 97139; 99284; J0692; J2270; J2405; J3370; J7030; J7050; Q9967